=== PATIENT | male | born 1990 | race Caucasian/White ===

== ENCOUNTER 2022-01-27 23:29 | Emergency (ER) | payer OTHER ==
[~2022-01-27 23:29] MED LIST: DELSYM30 MG/5 ML PO; EXPECTORANT200 MG PO; PEPCID20 MG PO; PROTONIX 40 MG40 M1 PO
== END 2022-01-28 02:00 | disposition home or self-care (01) ==
LOC: ER1 23:29
DX: S62.660A Nondisplaced fracture of distal phalanx of right index finger, initial encounter for closed fracture (principal); W23.0XXA Caught, crushed, jammed, or pinched between moving objects, initial encounter; Y92.89 Other specified places as the place of occurrence of the external cause; Y99.0 Civilian activity done for income or pay
CPT/HCPCS: 73140; 96372; 99283; J0690